=== PATIENT | male | born 1960 | race Caucasian/White ===

== ENCOUNTER 2016-09-02 10:16 | Emergency (ER) | payer OTHER, MEDICARE ==
[~2016-09-02] VITALS: Ht 165.1 cm; Wt 68.0 kg
--- NOTE | 2016-09-02 11:06 | ED GI/GU/ABDOMINAL COMPLAINT ---
History of Present Illness General Chief Complaint: Abdominal Pain/Flank Pain Stated Complaint: ABD PAIN Source: patient Exam Limitations: no limitations Vital Signs & Intake/Output Vital Signs & Intake/Output Vital Signs Date Time Temp Pulse Resp B/P B/P Pulse O2 O2 Flow FiO2 Mean Ox Delivery Rate 09/02 1231 98.6 76 18 126/86 98 Room Air 09/02 1021 97.4 102 18 133/62 97 Room Air Allergies Coded Allergies: NO KNOWN ALLERGIES (09/02/16) Triage Note: PT TO ED FOR CONSTANT CRAMPING ABD PAIN X 1 WEEK. PT REPORTING IT IMPROVED WHEN HE TOOK A HOT SHOWER YESTERDAY. DENIES NAUSEA, VOMITING, DIARRHEA, LNBM THIS AM. Triage Nurses Notes Reviewed? yes Onset: Gradual Duration: week(s): (1) Timing: no prior history Quality/Severity: cramping, sharpness Severity Numbers: 8 Location: generalized abdomen Radiation: no radiation Activities at Onset: none Prior Abdominal Problems: none Past Sexual History: Unobtainable at this time No Modifying Factors: none Modifying Factors: Worsens With: palpation. HPI: Patient is a 56-year-old male with history of hypertension, high cholesterol presenting to the emergency department with centralized abdominal pain has been going on and off for the past one week. Pain is crampy in nature with intermittent sharp stabbing pain. Denies any associated nausea or vomiting or diarrhea. Last bowel movement was this morning and normal. Denies any urinary frequency urgency or dysuria. Has not taken anything to help with abdominal pain. Denies any alcohol use. He does smoke cigarettes daily. Denies other drug use. No history of abdominal surgeries. No history of pancreatitis or gallstones. Denies chest pain palpitations or shortness of breath. (ERENDIRA GAGE,MANDA) Reconcile Medications Levothyroxine Sodium 25 MCG TABLET 1 TAB PO DAILY AC THYROID (Reported) Lisinopril 10 MG TABLET 1 TAB PO DAILY BP (Reported) Omeprazole 20 MG CAPSULE.DR 1 CAP PO DAILY GASTRITIS Simvastatin (Simvastatin*) 40 MG TABLET 1 TAB PO DAILY CHOLESTEROL (Reported) (KASSIDY BROWN MD) Past History Travel History Traveled to [place] past 21 day No Medical History Any Pertinent Medical History? see below for history Neurological: NONE EENT: NONE Cardiovascular: hypertension, HIGH CHOLESTEROL Respiratory: NONE Gastrointestinal: NONE Hepatic: NONE Renal: NONE Musculoskeletal: NONE Psychiatric: NONE Endocrine: "GLAND STUFF" Blood Disorders: NONE Cancer(s): NONE MARKETING STRATEGY MANAGER/Reproductive: NONE Tetanus Vaccine: Surgical History Surgical History: non-contributory Psychosocial History What is your primary language Maltese Tobacco Use: Current Daily Use Daily Tobacco Use Amount/Type: => 5 Cigarettes daily ETOH Use: denies use Illicit Drug Use: denies illicit drug use Family History Hx Contributory? No (MANDA ROTH) Review of Systems Review of Systems Constitutional: Reports: no symptoms. Comments Review of systems: See HPI, All other systems negative. Constitutional, no chills fever or weight loss HEENT: No visual changes no sore throat no congestion Cardiovascular: No chest pain ,palpitation , orthopnea or ankle swelling Skin, no jaundice no rashes Respiratory: No dyspnea cough sputum or hemoptysis GI: No nausea no vomiting : No dysuria No hematuria Muscle skeletal: no back pain, no neck pain, Neurologic: No numbness no confusion and no headaches Psych: No stress anxiety or depression,. Heme/endocrine: No bruising no bleeding no polyuria or polydipsia Immunology: No splenectomy or history of AIDS (MANDA ROTH) Physical Exam Physical Exam General Appearance: well developed/nourished, no apparent distress, alert, awake , comfortable Gastrointestinal: normal bowel sounds, soft, tenderness Comments: Well-developed well-nourished person in no acute distress HEENT: Pupils equally round and reactive to light and accommodation. Nose is atraumatic. Pharynx normal. No swelling or edema. Neck: Supple, no lymphadenopathy, normal range of motion without pain or tenderness Back: Nontender, no CVA tenderness. Cardiovascular: Regular rate and rhythms no murmurs rubs or gallops, normal JVP Respiratory: Chest nontender. No respiratory distress.breath sounds clear to auscultation bilaterally Abdomen: Soft, mildly tender to palpation in the periumbilical and epigastric region, no rebound or guarding, nondistended, no appreciable organomegaly. Normal bowel sounds. No ascites Extremity: No edema Neuro: Alert oriented x3 Skin: No appreciable rash on exposed skin, skin is warm and dry. Psych: Mood and affect is normal, memory and judgment is normal. Core Measures ACS in differential dx? No Severe Sepsis Present: No Septic Shock Present: No (ERENDIRA PA,MANDA) Progress Differential Diagnosis: GASTRITIS, PANCREATITIS, CHOLECYSTITIS, APPENDICITIS, PEPTIC ULCER DISEASE Plan of Care: Orders Procedure Date/time Status URINE DRUG SCREEN FOR ER ONLY 09/02 1116 Complete URINALYSIS 09/02 1116 Complete LIPASE 09/02 1116 Complete LACTIC ACID 09/02 1116 Complete COMPREHENSIVE METABOLIC PANEL 09/02 1116 Complete CBC WITHOUT DIFFERENTIAL 09/02 1116 Complete AMYLASE 09/02 1116 Complete Laboratory Tests 09/02/16 1132: Anion Gap 13, Estimated GFR > 60, BUN/Creatinine Ratio 17.5, Glucose 114 H, Lactic Acid 0.9, Calcium 9.3, Total Bilirubin 0.6, AST 33, ALT 63, Alkaline Phosphatase 84, Total Protein 7.9, Albumin 4.7, Globulin 3.2, Albumin/Globulin Ratio 1.5, Amylase 57, Lipase 146, CBC w Diff NO MAN DIFF REQ, RBC 5.15, MCV 92.5, MCH 31.4 H, RDW 12.8, MPV 8.5, Gran % 80.7 H, Lymphocytes % 13.1 L, Monocytes % 4.7, Eosinophils % 0.8, Basophils % 0.7, Absolute Granulocytes 7.3 H, Absolute Lymphocytes 1.2, Absolute Monocytes 0.4, Absolute Eosinophils 0.1, Absolute Basophils 0.1, PUBS MCHC 34.0, Urine Opiates Screen < 100.00, Methadone Screen < 40, Barbiturate Screen < 60, Ur Phencyclidine Scrn < 6.00, Amphetamines Screen 324, U Benzodiazepines Scrn < 85, Urine Cocaine Screen < 50, Urine Cannabis Screen < 5.00, Urine Color [place], Urine Clarity CLEAR, Urine pH 6.0, Ur Specific [place] >= 1.030, Urine Protein TRACE H, Urine Ketones TRACE H, Urine Nitrite NEG, Urine Bilirubin NEG@ICTO, Urine Urobilinogen 0.2, Ur Leukocyte Esterase NEG, Ur Microscopic SEDIMENT EXAMINED, Urine RBC RARE, Ur Epithelial Cells FEW, Urine Bacteria FEW H, Hyaline Casts 1-3 H, Urine Mucus FEW, Urine Hemoglobin TRACE-LYSED H, Urine Glucose NEG Initial ED EKG: none Comments: Patient feeling much improved after GI cocktail. He was informed of all lab results. Patient is afebrile, no elevation in white blood cell count. Likely nonspecific gastritis. Educated on avoiding NSAIDs. Increasing fluids. Patient will be started on omeprazole. He'll return for any worsening symptoms or concerns. (MANDA ROTH) Departure Departure Time of Disposition: 1227 Disposition: HOME OR SELF CARE Condition: Stable Clinical Impression Primary Impression: Abdominal pain Qualifiers: Abdominal location: generalized Qualified Code: R10.84 - Generalized abdominal pain Referrals: AILEEN WELLS,BERNARDINO ARMANDO MD,TRINITY Sanchez (PCP/Family) Additional Instructions: Follow-up with your primary care physician if symptoms worsen he can also follow up with gastroenterology. Return for worsening symptoms or concerns. Take omeprazole daily. Departure Forms: Customer Survey D/C INS-APPENDICITIS EXCLUSION General Discharge Information Prescriptions: Current Visit Scripts Omeprazole 1 CAP PO DAILY #14 CAP (MANDA ROTH) PA/ROUGH AND TRUING MACHINE OPERATOR Co-Sign Statement Statement: ED Attending supervision documentation- I saw and evaluated the patient. I have also reviewed all the pertinent lab results and diagnostic results. I agree with the findings and the plan of care as documented in the PA's/ROUGH AND TRUING MACHINE OPERATOR's documentation. x I have reviewed the ED Record and agree with the PA's/ROUGH AND TRUING MACHINE OPERATOR's documentation. [] Additions or exceptions (if any) to the PAs/ROUGH AND TRUING MACHINE OPERATOR's note and plan are summarized below: [] (KEVIN WELLS,KASSIDY)
[2016-09-02] MEDS ORDERED: LISINOPRIL10 M1 PO (11:15)
[2016-09-02] MEDS ORDERED: LEVOTHYROXINE25 MCG PO (11:15)
[2016-09-02] MEDS ORDERED: SIMVASTATIN40 M1 PO (11:15)
[2016-09-02 11:47] LABS: ABSOLUTE BASOPHIL COUNT 0.1 /CUMM (0.0-0.2); ABSOLUTE EOSINOPHIL COUNT 0.1 /CUMM (0.0-0.7); ABSOLUTE GRANULOCYTE CT 7.3 /CUMM (1.4-6.5); ABSOLUTE LYMPH COUNT 1.2 /CUMM (1.2-3.4); ABSOLUTE MONOCYTE COUNT 0.4 /CUMM (0.10-0.60); BASOPHIL % 0.7 % (0.0-2.0); EOSINOPHIL % 0.8 % (0-5); GRANULOCYTE % 80.7 % (42.2-75.2); HEMATOCRIT 47.6 % (42-52); MEAN CORPUSCULAR HGB 31.4 PG (27.0-31.0); MEAN CORPUSCULAR VOLUME 92.5 FL (80.0-94.0); MEAN PLATELET VOLUME 8.5 FL (7.4-10.4); PLATELET COUNT 289 /CUMM (130-400); RBC DISTRIBUTION WIDTH 12.8 % (11.5-14.5); RED BLOOD CELL CT 5.15 /CUMM (4.70-6.10); WHITE BLOOD CELL COUNT 9.1 /CUMM (4.8-10.8)
[2016-09-02] MEDS ORDERED: OMEPRAZOLE20 M2 PO (12:28)
[2016-09-02 12:31] VITALS: BP 126/86
== END 2016-09-02 12:31 ==
LOC: ERH 10:16
PROVIDERS: Physician Assistant
DX: R10.84 Generalized abdominal pain (principal)
CPT/HCPCS: 80307; 81001